=== PATIENT | female | born 1955 | race Native Hawaiian/Other Pacific Islander ===

== ENCOUNTER 2018-03-02 09:06 | Inpatient (IN) | payer BC ==
[~2018-03-02] VITALS: Ht 167.6 cm; Wt 133.9 kg
[2018-03-02 10:49] LABS: PLATELET COUNT 225 K/uL (152-353)
[2018-03-02 11:00] LABS: POTASSIUM 3.5 mmol/L (3.6-5.2)
[2018-03-02 11:02] VITALS: BP 131/57; TEMP 98.4; Ht 167.6 cm; Wt 133.9 kg
[2018-03-02 12:00] VITALS: BP 137/60; TEMP 98.4
[2018-03-02 16:00] VITALS: BP 119/63; TEMP 98.3
[2018-03-02] MEDS ORDERED: FURO40TA93 PO (18:15)
[2018-03-02] MEDS ORDERED: ALPR0.2566 PO (18:16)
[2018-03-02] MEDS ORDERED: LOTREL1 CA4 PO (18:19)
[2018-03-02 20:00] VITALS: BP 115/59; TEMP 98.6
[2018-03-03] VITALS: BP 117/55; TEMP 98.1
[2018-03-03 04:00] VITALS: BP 103/59; TEMP 98.1
[2018-03-03 05:39] LABS: PLATELET COUNT 195 K/uL (152-353)
[2018-03-03 05:54] LABS: POTASSIUM 3.6 mmol/L (3.6-5.2)
[2018-03-03 08:00] VITALS: BP 121/64; TEMP 98.2
[2018-03-03 12:00] VITALS: BP 120/62; TEMP 97.3
[2018-03-03 16:00] VITALS: BP 105/68; TEMP 98.4
[2018-03-03 20:00] VITALS: BP 111/64; TEMP 98
[2018-03-04] VITALS: BP 99/58; TEMP 98.1
[2018-03-04 04:00] VITALS: BP 100/53; TEMP 98.3
[2018-03-04 08:00] VITALS: BP 125/98; TEMP 97.9
[2018-03-04 08:05] LABS: POTASSIUM 3.5 mmol/L (3.6-5.2)
[2018-03-04] MEDS ORDERED: SODI1TAB PO (08:20)
[2018-03-04] MEDS ORDERED: METO5TAB38 PO (08:20)
[2018-03-04 08:53] LABS: PLATELET COUNT 217 K/uL (152-353)
== END 2018-03-04 09:55 | disposition home or self-care (01) | DRG 292 ==
LOC: MED/SURG 09:06
PROVIDERS: ADMIT Nurse Practitioner Family
DX: I50.31 Acute diastolic (congestive) heart failure (principal); E87.1 Hypo-osmolality and hyponatremia; I10 Essential (primary) hypertension; E66.01 Morbid (severe) obesity due to excess calories; F10.10 Alcohol abuse, uncomplicated
CPT/HCPCS: 36415; 80053; 81000; 82550; 82553; 83615; 83880; 84484; 85027; 93005; 94760; 96374; 96375; J1940; J2405

== ENCOUNTER → 2018-03-10 14:32 | Outpatient (CLI) | payer BC ==
[~2018-03-10 14:32] MED LIST: ALPR0.2566 PO; FURO40TA93 PO; LOTREL1 CA4 PO; METO5TAB38 PO; SODI1TAB PO
== END | disposition home or self-care (01) ==
LOC: AMB 14:32
DX: T78.49XA Other allergy, initial encounter (principal)

== ENCOUNTER 2018-03-22 11:12 | Inpatient (IN) | payer BC ==
[~2018-03-22] VITALS: Ht 167.6 cm; Wt 125.7 kg
[2018-03-22 12:54] VITALS: BP 170/97; TEMP 98.3; Ht 167.6 cm; Wt 125.7 kg
[2018-03-22 13:08] LABS: PLATELET COUNT 266 K/uL (152-353)
[2018-03-22 13:25] LABS: POTASSIUM 2.7 mmol/L (3.6-5.2); SODIUM 126 mmol/L (136-145)
[2018-03-22 16:01] VITALS: BP 170/97; TEMP 98.3
--- NOTE | 2018-03-22 17:10 | NUR ---
BRITTNY GOMEZ NOTIFIED TO NOTIFY DR. THACKER ABOUT CONSULT.
[2018-03-22 20:00] VITALS: BP 151/83; TEMP 98
[2018-03-23] VITALS: BP 147/75; TEMP 98.5
[2018-03-23 04:00] VITALS: BP 128/67; TEMP 97.7
[2018-03-23 07:33] LABS: PLATELET COUNT 251 K/uL (152-353)
[2018-03-23 07:54] LABS: POTASSIUM 3.1 mmol/L (3.6-5.2)
[2018-03-23 08:14] VITALS: BP 165/79; TEMP 98.2
[2018-03-23 12:00] VITALS: BP 168/80; TEMP 98.5
[2018-03-23 16:00] VITALS: BP 162/65; TEMP 98.7
[2018-03-23 20:00] VITALS: BP 122/68; TEMP 98.5
[2018-03-24] VITALS: BP 136/65; TEMP 98.8
[2018-03-24 04:00] VITALS: BP 129/66; TEMP 98.7
[2018-03-24 05:28] LABS: PLATELET COUNT 251 K/uL (152-353)
[2018-03-24 05:44] LABS: POTASSIUM 3.4 mmol/L (3.6-5.2)
[2018-03-24 08:00] VITALS: BP 148/68; TEMP 98.3
[2018-03-24] MEDS ORDERED: KLOR-CON SPRIN10 MEQ PO (09:17)
[2018-03-24] MEDS ORDERED: METO5TAB38 PO (09:17)
--- NOTE | 2018-03-24 11:20 | NUR ---
IV D/C'd. DISCHARGE INSTRUCTIONS SIGNED AND GIVEN. PT. EXIT OUT OF FRONT ENTRANCE AMBULATING.
== END 2018-03-24 11:20 | disposition home or self-care (01) | DRG 948 ==
LOC: MED/SURG 11:12
PROVIDERS: ADMIT Nurse Practitioner Family
DX: R41.82 Altered mental status, unspecified (principal); I50.30 Unspecified diastolic (congestive) heart failure; I10 Essential (primary) hypertension; E66.01 Morbid (severe) obesity due to excess calories; E87.8 Other disorders of electrolyte and fluid balance, not elsewhere classified; T50.995A Adverse effect of other drugs, medicaments and biological substances, initial encounter; Y92.89 Other specified places as the place of occurrence of the external cause
CPT/HCPCS: 36415; 80053; 81000; 82550; 82553; 83615; 83735; 83880; 84484; 85027; 87040; 93005; 94760; 96365; 96366; 96367; 99220; G0378; G0379; J3475

== ENCOUNTER 2019-02-16 15:31 | Outpatient (CLI) | payer BC ==
[~2019-02-16 15:31] MED LIST changes: +KLOR-CON SPRIN10 MEQ PO
== END 2019-02-16 22:32 | disposition home or self-care (01) ==
LOC: RAD 15:31
DX: R06.89 Other abnormalities of breathing (principal); R06.02 Shortness of breath; R07.89 Other chest pain

== ENCOUNTER 2019-06-03 09:19 | Emergency (ER) | payer BC ==
[~2019-06-03] VITALS: Ht 167.6 cm; Wt 122.5 kg
[2019-06-03 10:44] VITALS: BP 150/80; TEMP 98
== END 2019-06-03 10:45 | disposition home or self-care (01) ==
LOC: ED 09:19
DX: S00.461A Insect bite (nonvenomous) of right ear, initial encounter (principal); L50.8 Other urticaria; W57.XXXA Bitten or stung by nonvenomous insect and other nonvenomous arthropods, initial encounter; Y92.89 Other specified places as the place of occurrence of the external cause
CPT/HCPCS: 96372; 99283; J2930

== ENCOUNTER 2020-08-13 10:17 | Outpatient (CLI) | payer BC | END 2020-08-13 23:24 | disposition home or self-care (01) | LOC: MAMMO 10:17 | DX: Z13.820 Encounter for screening for osteoporosis (principal); Z12.31 Encounter for screening mammogram for malignant neoplasm of breast; N95.8 Other specified menopausal and perimenopausal disorders ==

== ENCOUNTER 2020-12-26 09:11 | Outpatient (CLI) | payer BC ==
[2020-12-26 09:43] LABS: PLATELET COUNT 235 K/uL (152-353)
[2020-12-26 10:30] LABS: POTASSIUM 4.5 mmol/L (3.6-5.2)
== END 2020-12-26 22:07 | disposition home or self-care (01) ==
LOC: LABW 09:11
PROVIDERS: ATTEND Nurse Practitioner Family
DX: I11.0 Hypertensive heart disease with heart failure (principal); I50.9 Heart failure, unspecified; R53.83 Other fatigue; E55.9 Vitamin D deficiency, unspecified; R53.81 Other malaise; F41.8 Other specified anxiety disorders; Z79.899 Other long term (current) drug therapy; E53.8 Deficiency of other specified B group vitamins; R63.5 Abnormal weight gain; R06.09 Other forms of dyspnea
CPT/HCPCS: 36415; 80053; 80061; 82306; 82607; 83036; 83880; 84439; 84443; 85027

== ENCOUNTER 2021-02-01 10:51 | Outpatient (CLI) | payer BC ==
[2021-02-01 11:15] LABS: POTASSIUM 4.9 mmol/L (3.6-5.2)
== END 2021-02-01 20:54 | disposition home or self-care (01) ==
LOC: LABW 10:51
PROVIDERS: ATTEND Nurse Practitioner Family
DX: I10 Essential (primary) hypertension (principal)
CPT/HCPCS: 36415; 80048

== ENCOUNTER 2021-02-15 09:33 | Outpatient (CLI) | payer BC | END 2021-02-15 21:49 | disposition home or self-care (01) | LOC: RAD 09:33 | PROVIDERS: ATTEND Nurse Practitioner Family | DX: M25.561 Pain in right knee (principal); R60.0 Localized edema ==

== ENCOUNTER 2021-03-04 11:08 | Outpatient (CLI) | payer BC | END 2021-03-04 20:59 | disposition home or self-care (01) | LOC: RAD 11:08 | PROVIDERS: ATTEND Nurse Practitioner Family | DX: M25.561 Pain in right knee (principal) ==

== ENCOUNTER 2021-03-14 09:26 | Outpatient (CLI) | payer BC | END 2021-03-14 22:45 | disposition home or self-care (01) | LOC: US 09:26 | PROVIDERS: ATTEND Orthopaedic Surgery | DX: M25.561 Pain in right knee (principal); M17.11 Unilateral primary osteoarthritis, right knee; I82.401 Acute embolism and thrombosis of unspecified deep veins of right lower extremity; S83.411A Sprain of medial collateral ligament of right knee, initial encounter ==

== ENCOUNTER 2021-04-01 09:30 | Outpatient (CLI) | payer BC | END 2021-04-01 12:00 | disposition home or self-care (01) | LOC: LABW 09:30 | PROVIDERS: ATTEND Nurse Practitioner Family | DX: I10 Essential (primary) hypertension (principal) | CPT/HCPCS: 36415; 80048 ==

== ENCOUNTER 2022-03-12 13:12 | Outpatient (CLI) | payer BC | END 2022-03-12 19:15 | disposition home or self-care (01) | LOC: US 13:12 | PROVIDERS: ATTEND Nurse Practitioner Family | DX: E04.1 Nontoxic single thyroid nodule (principal); R59.9 Enlarged lymph nodes, unspecified ==

== ENCOUNTER 2022-03-18 08:44 | Outpatient (CLI) | payer BC | END 2022-03-18 18:50 | disposition home or self-care (01) | LOC: CT 08:44 | PROVIDERS: ATTEND Nurse Practitioner Family | DX: R93.89 Abnormal findings on diagnostic imaging of other specified body structures (principal); R59.9 Enlarged lymph nodes, unspecified | CPT/HCPCS: 36415; 82565; 84520; Q9963 ==